=== PATIENT | male | born 1970 | race Caucasian/White ===

== ENCOUNTER → 2018-03-28 | Outpatient (CLI) | payer OTHER ==
--- NOTE | 2018-04-10 21:25 | ONC ---
[place] [address] RADIATION ONCOLOGY NOTE Name: RICHARD KNIGHT COLIN Room: [facility].#: [id number] Admission: 03/28/18 Attend Phys: Mark Anthony Hernández MD Discharge: Date of : 72 Report #: [id number] THIS REPORT FOR: //name// CC: Mark Anthony Huff DATE OF SERVICE: 03/28/2018 REFERRING PHYSICIANS: Tone Clarke MD; Luis Mane MD and Dr. Huff. [facility] phone is [phone]. 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 PROCEDURE: nasopharyngolaryngoscopy. FINDINGS: on nasopharyngolaryngoscopy, after administration of 2% viscous lidocaine orally and 2% viscous lidocaine via the right nostril, there were no suspicious visible lesions in the nasopharynx. There were no suspicious visible lesions in the posterior oropharynx. There were no suspicious visible lesions involving the true vocal cords. The vocal cords were normally mobile bilaterally, so this appears to be a pretty well lateralized tonsillar cancer. Thank you very much for allowing me to participate in the care of this patient. <ELECTRONICALLY SIGNED> By: Mark Anthony Hernández MD 04/10/18 2125 1618 0013DMD cassidy Kay
--- NOTE | 2018-04-10 22:18 | CON ---
[address] [address] CONSULTATION Name: RICHARD KNIGHT Room: [facility].#: [id number] Admission: 03/28/18 Attend Phys: Mark Anthony Hernández MD Discharge: Date of : 72 Report #: [id number] THIS REPORT FOR: //name// CC: Mark Anthony Huff DATE OF SERVICE: 03/28/2018 REFERRING PHYSICIANS: Include Dr. Tone Clarke, Dr. Luis Mane and Dr. Huff. [facility] PRIMARY SITE AND HISTOPATHOLOGY: The patient has findings consistent with at least a T2N1Mx HPV positive right tonsillar cancer. HISTORY OF PRESENT ILLNESS: The patient is a 47-year-old gentleman who started developing a palpable mass on the right side of his neck and then had a neck ultrasound in August 2017 and that revealed thyroid nodules. He had an ultrasound of the thyroid nodules in September 2017. A biopsy of the thyroid nodule on the left was benign. He continued to have palpable masses on the right side of the neck. He had a neck ultrasound in September 2017. The largest of these measured 3.1 cm x 3.3 cm.x 1.6 cm. The patient had a fine needle aspirate of the node, which revealed squamous cell cancer. He had a neck CT on 05/17/2018, which revealed pathologically enlarged multiple right level 2 and 3 lymph nodes with enlargement of the right palatine tonsils and those lymph nodes were suspicious for malignancy. There was also a 1.7 cm hypodense left thyroid lobe nodule. The patient underwent biopsies by Dr. 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 The greatest dimension of the tumor was 3.1 cm and he presents for consideration for treatment. PAST MEDICAL HISTORY AND PAST SURGICAL HISTORY: Includes hearing loss and diabetes. He had a laparotomy band surgery of his stomach in 2003. MEDICATIONS: His diabetes medications are metformin, fluconazole as needed, phentermine, enalapril, clotrimazole, betamethasone cream,topiramate, Humalog, AndroGel and ezetimibe. ALLERGIES: PENICILLIN. FAMILY HISTORY: [place] [address] CONSULTATION Name: RICHARD KNIGHT Room: [facility]#: [id number] Admission: 03/28/18 Attend Phys: Mark Anthony Hernández MD Discharge: Date of : 72 Report #: [id number] SOCIAL HISTORY: The patient is involved in supply chain management. He is . Ethanol: He drinks one alcohol containing beverage per week. Cigarettes: He does not smoke cigarettes, but he has chewed tobacco for about 30 years. REVIEW OF SYSTEMS: GENERAL: Denied having any fevers or chills. SKIN: He denied having color changes or itching. LYMPH NODES: He has palpable lymphadenopathy in the right neck. ENDOCRINE: He denied having any hot or cold intolerance. HEMATOLOGY/IMMUNOLOGY: The patient denied having any anemia or recent bleeding. MUSCULOSKELETAL: He denied having any painful swollen joints. HEAD AND NECK:He has a sore throat with some difficulty swallowing after the biopsy. RESPIRATORY: He denied having any shortness of breath. CARDIOVASCULAR: He denied having any palpitations. GASTROINTESTINAL: He denied having any nausea. NEUROLOGIC: He denied having any focal weakness. PHYSICAL EXAMINATION: VITAL SIGNS: Height 6 feet 2 inches, weight 420 pounds per the patient. Blood pressure 142/79, pulse 88, respirations 30, oxygen saturation 94% on room air. LYMPH NODES: He has at least one area of palpable lymphadenopathy in the right neck measuring 2 cm. x 2 cm. GENERAL PSYCHIATRIC: He was alert, oriented, and in no acute distress. EYES: Pupils were equal, round, reactive to light and accommodation. Extraocular movements were intact. HEAD, EARS, NOSE AND THROAT: Mouth had an area where he had the right tonsillar area biopsy with post-biopsy findings, no visible lesions. On exam, no suspicious visible mass, but he does have post-biopsy findings in the right tonsillar fossa and also left tonsillar fossa. A nasopharyngolaryngoscopy after application of 2% viscous lidocaine orally and 2% viscous lidocaine via the right nostril, there were no visible lesions in the nasopharynx, posterior oropharynx and the true vocal cords were normally mobile bilaterally without any visible lesions. HEART: Had a regular rate and rhythm without murmur. LUNGS: were clear to auscultation. ABDOMEN: Not tender. Spleen was not palpable. Liver was at the costal margin. EXTREMITIES: Had no clubbing, cyanosis or edema. NEUROLOGIC: Cranial nerves II-XII were intact. Sensation was intact. He had 5/5 strength in his extremities. ASSESSMENT AND PLAN: The patient has findings consistent with at least a T2N1Mx tonsillar cancer. He was told that the treatment options are further surgery with possible postoperative radiation therapy versus definitive radiation therapy with or without chemotherapy reserving surgery for salvage. The efficacy of radiation therapy for a tonsillar cancer can be found in the article titled "senior care results of ipsilateral radiotherapy for tonsil cancer" which was published in the Radiation Oncology Journal 2013 and in that study with definitive radiation therapy, the 5-year local progression free survival [address] [place] [place] [address] CONSULTATION Name: RICHARD KNIGHT COLIN Room: [facility] M.R.#: [id number] Admission: 03/28/18 Attend Phys: Mark Anthony Hernández MD Discharge: Date of : 72 Report #: [id number] rate was 95%. I will go ahead and refer him to his dentist, so he can get a dental evaluation before radiation therapy. He will be referred to his dentist, Dr. Graves for preradiation therapy evaluation. Thank you very much for this consultation. <ELECTRONICALLY SIGNED> By: Mark Anthony Hernández MD 04/10/18 2218 1632 0105Mark Anthony Hernández MD /nt
== END | disposition home or self-care (01) ==
LOC: M.RTH 00:06
DX: C09.9 Malignant neoplasm of tonsil, unspecified (principal); E11.9 Type 2 diabetes mellitus without complications; Z98.890 Other specified postprocedural states; Z79.899 Other long term (current) drug therapy; Z88.0 Allergy status to penicillin; Z80.42 Family history of malignant neoplasm of prostate; Z87.891 Personal history of nicotine dependence

== ENCOUNTER → 2018-07-22 | Outpatient (CLI) | payer OTHER ==
--- NOTE | 2018-07-31 13:06 | ONC ---
[address] [address] RADIATION ONCOLOGY NOTE Name: RICHARD KNIGHT Room: [facility]#: [id number] Admission: 07/22/18 Attend Phys: Mark Anthony Hernández MD Discharge: Date of : 72 Report #: [id number] THIS REPORT FOR: //name// CC: Mark Anthony Rutledge MD [facility] PRIMARY SITE AND HISTOPATHOLOGY: The patient received definitive radiation therapy and chemotherapy for a HPV positive T2 N1 M0 right tonsillar cancer. The chemotherapy was managed by his medical oncologist, Dr. Rutledge. Radiation therapy was completed on 06/22/2018. INTERVAL NOTE: He is not using his gastric tube as much. He takes 1 to 2 supplements through the gastric tube per day. He is eating soft foods such as melons by mouth. He is still losing weight. MEDICATIONS: He is on a 25 mcg per hour of fentanyl patch. He takes about 5 mg of oxycodone about 4 times a day, and takes 0.5 mg lorazepam twice a day. He is also taking metformin. He was recently on fluconazole. He also takes enalapril, clotrimazole, atorvastatin, topiramate, Humalog, AndroGel. REVIEW OF SYSTEMS: SKIN: The patient has a small firm area on his forehead. MUSCULOSKELETAL: He has good range of motion of his upper extremities. GASTROINTESTINAL: He still has altered taste. PHYSICAL EXAMINATION: VITAL SIGNS: The patient weighed 354.8 pounds on 07/22/2018. He was 375 pounds on 06/21/2018. On 07/22/2018, blood pressure was 138/84, pulse 102, respirations 18, oxygen saturation 98%. LYMPH NODES: He had no palpable cervical or supraclavicular lymphadenopathy. HEAD, EYES, EARS, NOSE, AND THROAT: Mouth had no suspicious visible lesions, and no suspicious palpable lesions. There was some resolving mucositis in the posterior oropharynx. HEART: Had a regular rate and rhythm without murmur. LUNGS: were clear to auscultation. ABDOMEN: Gastric tube was in place. LABORATORY DATA: From 07/06/2018: Sodium 131, potassium 4.5, BUN 15, creatinine 0.93 and white blood cell count 2.5, hemoglobin 12.9 and platelets 320,000. on 07/18/2018, sodium was 135, potassium 4.3, BUN 13, creatinine 1.05, AST 31. TSH 0.820 [place] [address] RADIATION ONCOLOGY NOTE Name: RICHARD KNIGHT Room: [facility]#: [id number] Admission: 07/22/18 Attend Phys: Mark Anthony Hernández MD Discharge: Date of : 72 Report #: [id number] ASSESSMENT AND PLAN: 1. History of tonsillar cancer- There is no evidence of tonsillar cancer at this time. The patient indicated that he is scheduled for a neck and chest CT that was ordered by his medical oncologist, Dr. Rutledge on 08/09/2018. He is scheduled to see Dr. Rutledge on 08/11/2018. I gave the patient a requisition for a complete blood count, basic metabolic panel, TSH to be done in about 6 weeks and I asked the patient to schedule a follow up appointment with me afterwards. 2. Possible upper respiratory infection- The patient indicated that he had a little more productive cough lately, so he was given a prescription for azithromycin. 3. Pain control- The patient was told to try to start tapering off his medications, so he is going to switch from a 25 mcg per hour Duragesic patch to the 12 mcg per hour Duragesic patch. He was given a refill for his 1 mg per mL oxycodone solution and he was told to try to start tapering off of that and he was given a refill for 0.5 mg lorazepam and he was told to go ahead and try to transition from taking that twice a day to just at night. 4. Possible actinic keratosis on the forehead.- The patient was referred to the provider education specialist, Dr. Hernández, to have that evaluated. Thank you for allowing me to participate in the care of this patient. <ELECTRONICALLY SIGNED> By: Mark Anthony Hernández MD 07/31/18 1306 1242 0011Dcoy Hernández MD /nt
== END ==
LOC: M.RTH 02:30
DX: Z08 Encounter for follow-up examination after completed treatment for malignant neoplasm (principal); Z85.818 Personal history of malignant neoplasm of other sites of lip, oral cavity, and pharynx

== ENCOUNTER → 2018-08-26 | Outpatient (CLI) | payer OTHER ==
--- NOTE | 2018-09-08 23:50 | ONC ---
[address] [address] RADIATION ONCOLOGY NOTE Name: ANTONIA,RICHARD COLIN Room: [facility].#: [id number] Admission: 08/26/18 Attend Phys: Mark Anthony Hernández MD Discharge: Date of : 72 Report #: [id number] THIS REPORT FOR: //name// CC: MD Dr. Vince Bill MD, MD, Dr. DATE OF SERVICE: 08/26/2018 Radiation Oncology Followup Note REFERRING PHYSICIANS: Luis Mane MD; Dr. Huff; Dr. Rutledge, Dr. Clarke [facility] phone is [phone]. PRIMARY SITE AND HISTOPATHOLOGY: The patient received definitive radiation therapy and chemotherapy for an HPV positive ,T2 N1 M0, right tonsillar cancer. The chemotherapy is managed by his medical oncologist, Dr. Rutledge. The radiation therapy was completed on 06/22/2018. INTERVAL NOTE: The patient had his gastric tube removed. He felt like he was eating reasonably well. He does sometimes run lower blood sugars in the morning, like around 70 and he feels lightheaded with that. He still sometimes says he has dryness/pain in his throat, so he will take his liquid oxycodone sometimes in the evening and morning. He likes to eat green vegetable salads. He does have trouble with trying to eat dry meat, so he tries to avoid that. He only takes lorazepam as needed. He went to a senior compensation analyst, Dr. Hernández's group to take a look at a lesion on the forehead and that was frozen with liquid nitrogen. He is no longer using a fentanyl patch. MEDICATIONS: Oxycodone, lorazepam, metformin, enalapril, atorvastatin, topiramate, Humalog, Basaglar, AndroGel and his dentist gives him prescription for fluoride toothpaste. PHYSICAL EXAMINATION: VITAL SIGNS: The patient weighed 351.6 pounds on 08/26/2018. The patient was 354.8 pounds on 07/22/2018. On 08/26/2018, blood pressure was 116/80, pulse 98, respirations 20, oxygen saturation was 100% on room air. LYMPH NODES: The patient had no palpable cervical or supraclavicular lymphadenopathy. HEAD, EYES, EARS, NOSE AND THROAT: Mouth had no suspicious visible lesions or suspicious palpable lesions. There was no visible mucositis. HEART: Had a regular rate and [place] [address] RADIATION ONCOLOGY NOTE Name: RICHARD KNIGHT COLIN Room: [facility]#: [id number] Admission: 08/26/18 Attend Phys: Mark Anthony Hernández MD Discharge: Date of : 72 Report #: [id number] LUNGS: were clear to auscultation. ABDOMEN: The area where the gastric tube used to be, appears to be healing up well. There is a small scab. There may be a little furuncle around the scab. LABORATORY DATA: From 08/22/2018, hemoglobin was 12.7, platelets 197,000, white blood cell counts were 4.2. Sodium was 134, potassium was 3.9, BUN was 11, creatinine 0.95, glucose was 189. TSH was 1.29, which was within normal limits. RADIOLOGIC DATA: The patient had his gastrostomy tube removed on 08/17/2018 and the patient had a neck and chest CT on 08/09/2018.The neck showed no lesions to suggest recurrence. A chest x-ray had possibly some areas of pneumonitis in the right upper lobe, a followup CT scan in 3 months was recommended and then there was some post-radiation fibrosis involving the left apical area though when I looked at it, it appeared to be consistent with post-radiation changes. ASSESSMENT: 1. History of tonsillar cancer- There is no evidence of tonsillar cancer at this time. The patient is scheduled to see his ear, nose and throat physician, Dr. Clarke on 09/14/2018. Then, his medical oncologist scheduled the patient for a PET/CT scan and lab work on 10/21/2018 and the patient is seeing his medical oncologist, Dr. Rutledge on 10/25/2018. I gave the patient a requisition for lab work consisting of a complete blood count, basic metabolic panel and TSH to be done 10/2018 or 11/2018 and he was asked to shedule a follow up appointment with me afterwards. 2. Pain control- The patient was told that I did not see any mucositis. He was told to start tapering off the oxycodone. He was given a refill for oxycodone 3. Diabetes- The patient may be running some low glucoses in the morning, I told him to contact Dr. Huff's office with regards to his long-acting insulin that he takes to see if that needs to be adjusted. 4. Dental care- The patient said that his dentist is giving him a prescription for fluoride toothpaste. 5. Furuncle- The patient was given a prescription for Mupirocin to apply to the furuncle around the abdomen. otherwise the gastric tube site appears to be healing up well. [place] [address] [address] RADIATION ONCOLOGY NOTE Name: RICHARD KNIGHT Room: [facility].#: [id number] Admission: 08/26/18 Attend Phys: Mark Anthony Hernández MD Discharge: Date of : 72 Report #: [id number] Thank you for allowing me to participate in the care of this patient. <ELECTRONICALLY SIGNED> By: Mark Anthony Hernández MD 09/08/18 2350 1131 0138Mark Anthony Hernández MD /nt
== END ==
LOC: M.RTH 04:51
DX: E11.9 Type 2 diabetes mellitus without complications (principal); L02.221 Furuncle of abdominal wall; Z85.818 Personal history of malignant neoplasm of other sites of lip, oral cavity, and pharynx; Z79.899 Other long term (current) drug therapy

== ENCOUNTER → 2018-11-25 | Outpatient (CLI) | payer OTHER ==
--- NOTE | ~2018-11-25 | ONC ---
[address] [address] RADIATION ONCOLOGY NOTE Name: RICHARD KNIGHT Room: [facility].#: [id number] Admission: 11/25/18 Attend Phys: Mark Anthony Hernández MD Discharge: Date of : 72 Report #: [id number] THIS REPORT FOR: //name// CC: Mark Anthony Mane DATE OF SERVICE: 11/25/2018 Radiation Oncology Followup Note REFERRING PHYSICIANS: Include Luis Mane MD, Tone Clarke MD, Qiana Rutledge MD, and Boy Huff MD. [facility] phone is [phone]. PRIMARY SITE AND HISTOPATHOLOGY: The patient received definitive radiation therapy and chemotherapy for an HPV positive T2 N1 M0 right tonsillar cancer. The chemotherapy was managed by his medical oncologist, Dr. Rutledge. Radiation therapy was completed on 06/22/2018. INTERVAL NOTE: The patient feels like he is eating well. He is eating a regular diet. He is in the midst of moving and right now his continuous glucose monitor is packed up, so I think he will be working it on packing it, so he can monitor his glucose. He says that his dentist provides his fluoride for him. He tends to apply that with a brush at night and on his lab work, he had an elevated glucose, which he attributed to having the blood work taken after lunch before he took his insulin. He did take his insulin then. MEDICATIONS: Metformin, enalapril, atorvastatin, Humalog, topiramate, Basaglar and AndroGel. SOCIAL HISTORY: The patient did not smoke cigarettes. REVIEW OF SYSTEMS: RESPIRATORY: The patient was not short of breath. GASTROINTESTINAL: He has good appetite. PHYSICAL EXAMINATION: VITAL SIGNS: The patient weighed 360.2 pounds on 11/25/2018 and 351.6 pounds on 08/26/2018 and on 11/25/2018, his blood pressure is 136/78, pulse 95, respirations 20, oxygen saturation 96%. LYMPH NODES: He had no palpable cervical or supraclavicular lymphadenopathy. HEAD, EYES, EARS, NOSE AND THROAT: Mouth had no suspicious visible lesions or suspicious palpable lesions. There was no visible mucositis. HEART: Had a regular rate and rhythm without murmur. LUNGS: [place] [address] RADIATION ONCOLOGY NOTE Name: RICHARD KNIGHT COLIN Room: [facility]#: [id number] Admission: 11/25/18 Attend Phys: Mark Anthony Hernández MD Discharge: Date of : 72 Report #: [id number] ABDOMEN: The area where his gastric tube used to be is well healed. LABORATORY DATA: From 11/23/2018, hemoglobin is 14.4, platelets 208,000, white blood cell count is 3.9. Sodium 133, potassium 4.5, creatinine 0.96; TSH was 2.7. RADIOLOGIC DATA: The patient had a PET/CT scan on 10/21/2018 and there was near complete resolution of his hypermetabolic right cervical lymphadenopathy. Lymph nodes were normal in size and FDG uptake was similar to background and had some hepatic steatosis. ASSESSMENT: 1. History of tonsillar cancer. There is no evidence of tonsillar cancer at this time. The patient's medical oncologist, Dr. Rutledge has ordered a neck and chest CT for 02/21/2019 and the patient is scheduled to see his medical oncologist, Dr. Rutledge on 02/23/2019 and the patient was given a requisition for a complete blood count, basic metabolic panel, TSH in 04/2019 or 05/2019. The patient was asked to schedule a followup appointment to see me afterwards. 2. Diabetes. The patient indicated that he is working getting his glucose monitor and continues to follow up with his support assistant, Dr. Huff with regards to management of his glucose. I will ask my nurse to pass on his recent labs to Dr. Huff's office. 3. Dental care, the patient said his dentist given him a prescription for fluoride toothpaste. Thank you for allowing me to participate in the care of this patient. By: 1031 1133Dcoy Hernández MD /adeline
== END ==
LOC: M.RTH 09:30
DX: E11.9 Type 2 diabetes mellitus without complications (principal); Z85.818 Personal history of malignant neoplasm of other sites of lip, oral cavity, and pharynx

== ENCOUNTER → 2019-06-02 | Outpatient (CLI) | payer OTHER ==
--- NOTE | ~2019-06-02 | ONC ---
[place] [address] RADIATION ONCOLOGY NOTE Name: RICHARD KNIGHT Room: [facility]#: [id number] Admission: 06/02/19 Attend Phys: Mark Anthony Hernández MD Discharge: Date of : 72 Report #: [id number] THIS REPORT FOR: //name// CC: Mark Anthony Mane DATE OF SERVICE: 06/02/2019 RADIATION ONCOLOGY FOLLOWUP NOTE REFERRING PHYSICIANS: Dr. Luis Mane; Dr. Tone Clarke; Qiana Rutledge MD; Boy Huff MD. [facility] phone is [phone]. PRIMARY SITE AND HISTOPATHOLOGY: The patient received definitive radiation therapy and chemotherapy for an HPV positive, T2 N1 M0 right tonsillar cancer. The chemotherapy is managed by his medical oncologist, Dr. Rutledge. The radiation treatments were was completed on 06/22/2018. INTERVAL NOTE: The patient felt like he was eating well. He is eating a regular diet. 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 He takes insulin. MEDICATIONS: Metformin, Humalog insulin, enalapril, atorvastatin, topiramate, Basaglar, AndroGel. SOCIAL HISTORY: The patient does not smoke cigarettes. REVIEW OF SYSTEMS: RESPIRATORY: The patient was not short of breath. GASTROINTESTINAL: He has a good appetite. PHYSICAL EXAMINATION: VITAL SIGNS: The patient weighed 360 pounds on 06/02/2019, 360 pounds on 11/25/2018 and on 06/02/2019, blood pressure 135/77, pulse 84, respirations 20, oxygen saturation 95%. LYMPH NODES: The patient had no palpable cervical or supraclavicular lymphadenopathy. HEAD, EYES, EARS, NOSE AND THROAT: Mouth had no suspicious visible lesions or suspicious palpable lesions. HEART: Had a regular rate and rhythm without murmur. LUNGS: [place] [address] RADIATION ONCOLOGY NOTE Name: RICHARD KNIGHT Room: [facility]#: [id number] Admission: 06/02/19 Attend Phys: Mark Anthony Hernández MD Discharge: Date of : 72 Report #: [id number] LABORATORY DATA: From 05/29/2019, hemoglobin 12.5, platelets were 196,000, white blood cell count 2.8. Sodium 137, potassium 4.4, BUN 24, creatinine 1.58 and TSH was 4.44, which is within normal limits. RADIOLOGIC DATA: Chest and neck CT on 02/21/2019 showed stable post-therapeutic changes in the neck with no evidence of cervical mass or lymphadenopathy. He had a right mastoid effusion and chest had no thoracic metastasis. ASSESSMENT AND PLAN: 1. History of tonsillar cancer. There is no evidence of tonsillar cancer at this time. The patient has an appointment with his ear, nose, throat physician, Dr. Clarke on 06/30/2019 and then he has a lab work ordered by his medical oncologist, Dr. Rutledge as well as a neck and chest CT on 08/29/2019. He is seeing Dr. Rutledge on 08/31/2019. I ordered lab work in 11/2019 and asked the patient to follow up with me afterwards. 2. Mild dehydration. The patient is now drinking adequate fluids. Lab work was ordered before his appointment with Dr. Clarke to confirm that he is taking adequate hydration. He will have lab work with Dr. Rutledge and I also ordered a TSH, basic metabolic panel, complete blood count in 11/2019, asked the patient to follow up with me afterwards. 3. Diabetes. The patient takes insulin and metformin that is managed by his referring physicians. 4. Dental care. The patient applies dental gel to his teeth with tooth brushing and his dentist provides fluoride for him. Thank you for allowing me to participate in the care of this patient. By: 1226 0027Mark Anthony Hernández MD /adeline
== END ==
LOC: M.RTH 04:03
DX: Z08 Encounter for follow-up examination after completed treatment for malignant neoplasm (principal); E11.9 Type 2 diabetes mellitus without complications; E86.0 Dehydration; Z79.4 Long term (current) use of insulin; Z79.899 Other long term (current) drug therapy; Z85.89 Personal history of malignant neoplasm of other organs and systems

== ENCOUNTER → 2019-12-01 | Outpatient (CLI) | payer OTHER ==
--- NOTE | 2019-12-02 22:31 | ONC ---
[address] [address] RADIATION ONCOLOGY NOTE Name: RICHARD KNIGHT COLIN Room: [facility].#: [id number] Admission: 12/01/19 Attend Phys: Mark Anthony Hernández MD Discharge: Date of : 72 Report #: [id number] THIS REPORT FOR: //name// CC: Mark Anthony Ervin DATE OF SERVICE: 12/01/2019 REFERRING PHYSICIANS: Dr. Qaina Rutledge; Dr. Tone Clarke; Dr. Luis Mane; Dr. Huff; and Dr. Ervin from [facility]. [facility] phone is [phone]. PRIMARY SITE AND HISTOPATHOLOGY: The patient has received definitive radiation therapy and chemotherapy for an HPV positive, T2N1M0 right tonsillar cancer. The chemotherapy was managed by his medical oncologist, Dr. Rutledge. The radiation treatments were completed on 06/22/2018. INTERVAL NOTE: The patient felt that he is eating a regular diet. He generally eats food such as eggs and he sometimes avoids dry breads. He said that his dentist provides fluoride for him. He applies the fluoride to his teeth using a tooth brush. MEDICATIONS: Jardiance, metformin, enalapril, topiramate, Basaglar and AndroGel. SOCIAL HISTORY: The patient does not smoke cigarettes. REVIEW OF SYSTEMS: RESPIRATORY: The patient was not short of breath. GASTROINTESTINAL: The patient has a good appetite. PHYSICAL EXAMINATION: VITAL SIGNS: The patient weighed 392.4 pounds on 12/01/2019. He was 360 pounds on 06/02/2019. On 12/01/2019, blood pressure was 144/97, pulse 88, respirations 20 and oxygen saturation was 96%. LYMPH NODES: The patient had no palpable cervical or supraclavicular lymphadenopathy. HEAD, EYES, EARS, NOSE AND THROAT: Mouth had no suspicious visible lesions or suspicious palpable lesions. HEART: Had a regular rate [place] [address] RADIATION ONCOLOGY NOTE Name: RICHARD KNIGHT COLIN Room: [facility]#: [id number] Admission: 12/01/19 Attend Phys: Mark Anthony Hernández MD Discharge: Date of : 72 Report #: [id number] LUNGS: were clear to auscultation. LABORATORY DATA: From 11/29/2019; white blood cell count was 4.6, hemoglobin 14.5, platelets 193,000. Sodium 138, potassium 4.6, BUN 18, creatinine was 1.81. It was 1.09 on 08/29/2019. TSH was elevated at 10.07. ASSESSMENT AND PLAN: 1. History of tonsillar cancer- The patient has no evidence of tonsillar cancer at this time. The patient is scheduled for a neck and chest CT on 02/2020 by his medical oncologist and he is also scheduled to see his medical oncologist in 02/2020. He is also scheduled to see Dr. Clarke as well. Lab work was ordered in 04/2020 or 05/2020 and the patient was asked to schedule a follow up appointment to see me afterwards. 2. Rising creatinine - the patient will be referred to the cordwainer, Dr. Bruno or his partners, to manage the patient's rising creatinine. 3. Hypothyroidism- The patient was given a prescription for 25 mcg of levothyroxine and a TSH was ordered in 04/2020 or 05/2020 and the patient was asked to schedule a followup appointment to see me afterwards. 4. Diabetes- The patient takes metformin and that is managed by his referring physicians. 5. Dental care- The patient indicated that his fluoride dental gel was provided to him by his dentist and the patient applies it to his teeth with a tooth brush. Thank you for allowing me to participate in the care of this patient. <ELECTRONICALLY SIGNED> By: Mark Anthony Hernández MD 12/02/19 [id number] Anthony Hernández MD /nt
== END ==
LOC: M.RTH 10:15
DX: Z08 Encounter for follow-up examination after completed treatment for malignant neoplasm (principal); E03.9 Hypothyroidism, unspecified; E11.9 Type 2 diabetes mellitus without complications; Z85.818 Personal history of malignant neoplasm of other sites of lip, oral cavity, and pharynx

== ENCOUNTER → 2020-06-07 | Outpatient (CLI) | payer OTHER ==
--- NOTE | 2020-06-09 20:40 | ONC ---
[place] [address] RADIATION ONCOLOGY NOTE Name: RICHARD KNIGHT COLIN Room: [facility].#: [id number] Admission: 06/07/20 Attend Phys: Mark Anthony Hernández MD Discharge: Date of : 72 Report #: [id number] THIS REPORT FOR: //name// CC: Mark Anthony Wiley MD DATE OF SERVICE: 06/07/2020 RADIATION ONCOLOGY FOLLOWUP NOTE REFERRING PHYSICIANS: Include Luis Mane MD; Qiana Rutledge MD; Tone Clarke MD; Dr. Huff and Catalina Wiley MD [facility] phone is [phone]. PRIMARY SITE AND HISTOPATHOLOGY: The patient received definitive radiation therapy and chemotherapy for an HPV positive T2 N1 M0 right tonsillar cancer. The chemotherapy was managed by his medical oncologist, Dr. Rutledge. The radiation treatments were completed on 06/22/2018. INTERVAL NOTE: The patient is eating a regular diet. He said that he eats food such as eggs and he avoids dry foods such as dry breads and dry meats. He indicated that his dentist gives him his fluoride to use for dental care. He tends to apply the fluoride to his teeth using a tooth brush. MEDICATIONS: Include metformin, Jardiance, levothyroxine and he takes 50 mcg of levothyroxine per day. He also takes Basaglar and AndroGel. SOCIAL HISTORY: The patient does not smoke cigarettes. REVIEW OF SYSTEMS: RESPIRATORY: The patient was not short of breath. GASTROINTESTINAL: The patient has a good appetite and his weight has been stable. PHYSICAL EXAMINATION: VITAL SIGNS: The patient weighed 392.4 pounds on 06/07/2020 and the patient weighed 392.4 pounds on 12/01/2019. On 06/07/2020, blood pressure was 135/95, pulse was 89, temperature was 97 degrees Fahrenheit, respirations 20 and oxygen saturation was 97%. LYMPH NODES: The patient had no palpable cervical or supr[place] [address] RADIATION ONCOLOGY NOTE Name: RICHARD KNIGHT COLIN Room: [facility]#: [id number] Admission: 06/07/20 Attend Phys: Mark Anthony Hernández MD Discharge: Date of : 72 Report #: [id number] HEAD, EYES, EARS, NOSE AND THROAT: Mouth had no suspicious visible lesions or suspicious palpable lesions. There were no visible lesions in the tonsillar area. HEART: Had a regular rate and rhythm without murmur. LUNGS: were clear to auscultation. LABORATORY DATA: From 06/05/2020, hemoglobin was 15.4, platelets were 207,000, white blood cell count was 4.3. Sodium was 136, potassium 4.3, BUN 16, creatinine 1.3. His TSH was elevated at 7.39, though improved from 04/16/2020 when it was 16.25 and his free T4 was 0.8. On 04/16, his levothyroxine was increased from 25 mcg to 50 mcg. ASSESSMENT AND PLAN: 1. History of tonsillar cancer- There is no evidence of tonsillar cancer at this time. The patient has an appointment with his Ear[facility] Nose, Throat physician, Dr. Clarke on 07/05/2020. The patient also has an appointment with his medical oncologist, Dr. Rutledge, on 01/16/2021. Dr. Rutledge has ordered a neck and chest CT as well as lab work to be done on 01/14/2021. I went ahead and ordered a complete blood count and basic metabolic panel in about 1 year and I asked the patient to schedule a follow up appointment with me afterwards. 2. Hypothyroidism- The patient's TSH is improving, as his levothyroxine was increased from 25 mcg per day to 50 mcg per day. His TSH though is still elevated, so his levothyroxine was from 50 mcg per day to 75 mcg per day. A TSH was ordered in about 1 year and the patient was asked to schedule a follow up appointment with me afterwards. 3. Diabetes- The patient takes metformin and that is managed by his referring physicians. 4. Dental care- The patient indicated that his dentist provides his fluoride for him and that he applies the fluoride to his teeth with a toothbrush. Thank you for allowing me to participate in the care of this patient. <ELECTRONICALLY SIGNED> By: Mark Anthony Hernández MD 06/09/202039 [id number] Hernández MD /nt
== END ==
LOC: M.RTH 09:37
PROVIDERS: ATTEND Radiology Radiation Oncology
DX: Z08 Encounter for follow-up examination after completed treatment for malignant neoplasm (principal); Z85.818 Personal history of malignant neoplasm of other sites of lip, oral cavity, and pharynx